=== PATIENT | female | born 1980 | race Caucasian/White ===

== ENCOUNTER 2022-02-27 00:39 | Emergency (ER) | payer MEDICARE, OTHER | END 2022-02-27 01:31 | disposition home or self-care (01) | LOC: CSHERS 00:39 | DX: E10.40 Type 1 diabetes mellitus with diabetic neuropathy, unspecified (principal); I10 Essential (primary) hypertension; Z79.899 Other long term (current) drug therapy; Z79.84 Long term (current) use of oral hypoglycemic drugs; Z79.4 Long term (current) use of insulin | CPT/HCPCS: 99281 ==